=== PATIENT | female | born 1960 | race Caucasian/White ===

== ENCOUNTER → 2020-10-19 | Day surgery (SDC) | payer BC | END | disposition home or self-care (01) | LOC: OR 07:03 | PROVIDERS: Surgery | PROC: 0DB78ZX Excision of Stomach, Pylorus, Via Natural or Artificial Opening Endoscopic, Diagnostic (ICD-10-PCS; principal; 2020-10-19 09:05) | PROC: 0DJD8ZZ Inspection of Lower Intestinal Tract, Via Natural or Artificial Opening Endoscopic (ICD-10-PCS; principal; 2020-10-19 09:05) | PROC: 0DB38ZX Excision of Lower Esophagus, Via Natural or Artificial Opening Endoscopic, Diagnostic (ICD-10-PCS; principal; 2020-10-19 09:05) | PROC: 0D578ZZ Destruction of Stomach, Pylorus, Via Natural or Artificial Opening Endoscopic (ICD-10-PCS; principal; 2020-10-19 09:05) | DX: Z12.11 Encounter for screening for malignant neoplasm of colon (principal); K21.00 Gastro-esophageal reflux disease with esophagitis, without bleeding; K44.9 Diaphragmatic hernia without obstruction or gangrene; K29.50 Unspecified chronic gastritis without bleeding; K31.7 Polyp of stomach and duodenum; K64.4 Residual hemorrhoidal skin tags; D51.9 Vitamin B12 deficiency anemia, unspecified; Z88.8 Allergy status to other drugs, medicaments and biological substances; Z79.899 Other long term (current) drug therapy | CPT/HCPCS: J2704; J3010; J7120 ==

== ENCOUNTER 2021-09-17 19:29 | Emergency (ER) | payer BC ==
[2021-09-17 20:39] LABS: HEMOGLOBIN 12.8 gm/dl (12.3-15.3); RED BLOOD COUNT 4.37 M/UL (4.00-5.10); WHITE BLOOD COUNT 4.7 K/UL (4.5-11.0)
[2021-09-17 21:10] LABS: BUN/CREATININE RATIO 32 (0-10)
== END 2021-09-17 23:15 | disposition home or self-care (01) ==
LOC: ER1 19:29
PROVIDERS: Physician Assistant
DX: K42.9 Umbilical hernia without obstruction or gangrene (principal); Z88.0 Allergy status to penicillin
CPT/HCPCS: 80053; 85025; 93005; 99284; Q9967

== ENCOUNTER → 2021-09-29 | Day surgery (SDC) | payer BC ==
[~2021-09-29] MED LIST: COLACE 100MG C100 MG PO; HYDROCODON-ACE1 EAC2 PO; MOBIC7.5 MG PO; MULTI FOR HER1 EACH PO; PROBIOTIC1 EAC1 PO; PROBIOTIC1 EAC3 PO
== END | disposition home or self-care (01) ==
LOC: OR 06:14
DX: K43.9 Ventral hernia without obstruction or gangrene (principal); Z88.0 Allergy status to penicillin; Z79.899 Other long term (current) drug therapy; Z20.822 Contact with and (suspected) exposure to COVID-19
CPT/HCPCS: C1781; J1100; J1170; J2001; J2250; J2405; J2704; J3010; J7030; J7120